=== PATIENT | male | born 1965 | race Caucasian/White ===

== ENCOUNTER 2019-02-04 08:02 | Emergency (ER) | payer OTHER ==
[2019-02-04 08:07] VITALS: RESP 16; TEMP 97.8
--- NOTE | 2019-02-04 08:39 | ED ---
Upper Extremity HPI - General Chief Complaint: Extremity Injury, Upper Stated Complaint: Shoulder injury-[facility] Time Seen by Provider: 02/04/19 08:07 Source: patient Mode of arrival: ambulatory Limitations: no limitations - History of Present Illness Initial Comments: Patient is a 53-year-old male complaining of left shoulder pain since this morning. States he went to lift 100 pound tool chest at work from the counter to the floor and felt instant pain and a pop in his left shoulder. No previous history of injury in the left shoulder. Denies numbness and tingling. No other complaints. - Related Data Home Medications Medication Instructions Recorded Confirmed No Known Home Medications 02/04/19 02/04/19 Allergies Allergy/AdvReac Type Severity Reaction Status Date / Time amoxicillin [Amoxicillin] Allergy Rash/Hives Verified 02/04/19 08:43 Review of Systems ROS Statement: Those systems with pertinent positive or pertinent negative responses have been documented in the HPI. ROS Other: All systems not noted in ROS Statement are negative. Past Medical History Past Medical History: No Reported History History of Any Multi-Drug Resistant Organisms: None Reported Past Surgical History: Back Surgery, Orthopedic Surgery Past Psychological History: No Psychological Hx Reported Smoking Status: Never smoker Past Alcohol Use History: Occasional Past Drug Use History: None Reported General Exam - General Exam Comments Initial Comments: GENERAL: Well-appearing, well-nourished and in no acute distress. HEAD: Atraumatic, normocephalic. EYES: Pupils equal round and reactive to light, extraocular movements intact, sclera anicteric, conjunctiva are normal. ENT: TMs normal, nares patent, oropharynx clear without exudates. Moist mucous membranes. NECK: Normal range of motion, supple without lymphadenopathy or JVD. LUNGS: Breath sounds clear to auscultation bilaterally and equal. No wheezes rales or rhonchi. HEART: Regular rate and rhythm without murmurs, rubs or gallops. ABDOMEN: Soft, nontender, normoactive bowel sounds. No guarding, no rebound. No masses appreciated. : Deferred EXTREMITIES: Decreased range of motion of the left shoulder,~70 flexion, 80 abduction. Painful arch. no pitting or edema. No clubbing or cyanosis. NEUROLOGICAL: Cranial nerves II through XII grossly intact. Normal speech, normal gait. PSYCH: Normal mood, normal affect. SKIN: Warm, Dry, normal turgor, no rashes or lesions noted. Limitations: no limitations Course Vital Signs 02/04/19 08:04 Temperature 97.8 F Pulse Rate 76 Respiratory 16 Rate Blood Pressure 125/86 O2 Sat by Pulse 97 Oximetry Medical Decision Making - Medical Decision Making Patient is a 53-year-old male complaining of left shoulder pain after lifting 100 pound tool chest at work today. Exam revealed possible rotator cuff injury. Left shoulder x-ray reveals increased distance between the inferior acromion and humeral head. Patient discharged home with sling and follow up with Dr. Uribe. Disposition Clinical Impression: Shoulder pain, left, Sprain of left shoulder joint Disposition: HOME SELF-CARE Condition: Stable Instructions (If sedation given, give patient instructions): Shoulder Pain (ED) Additional Instructions: Please return to the Emergency Department if symptoms worsen or any other concerns. Wear sling for comfort. Avoid lifting. Follow-up with ortho in 1 to 3 days. Is patient prescribed a controlled substance at d/c from ED?: No Referrals: Fidel Curtis DO [Primary Care Provider] - 1-2 days Ye Arellano MD [STAFF PHYSICIAN] - 1-2 days
--- NOTE | 2019-02-04 08:40 | XR ---
EXAMINATION TYPE: XR shoulder complete LT DATE OF EXAM: 02/04/2019 CLINICAL HISTORY: 3 views of left shoulder are obtained TECHNIQUE: Three views of the left shoulder are obtained. COMPARISON: None. FINDINGS: There is no acute fracture/dislocation evident in the left shoulder. The acromioclavicula r joint demonstrates mild arthropathy with small marginal osteophytes and subchondral cysts of the di stal clavicle. On the frontal view there is decreased distance between the inferior acromion and supe rior humeral head indicative of underlying rotator cuff injury. The visualized ribs are intact and u nremarkable. IMPRESSION: There is no acute fracture or dislocation in the left shoulder. On the AP view there is decreased distance between the acromion and supraspinatus suggesting rotator cuff injury. MRI could e valuate the rotator cuff.
[2019-02-04 09:15] VITALS: BP 134/85; PULSE 81
== END 2019-02-04 09:10 | disposition home or self-care (01) ==
LOC: EC 08:02
DX: S43.402A Unspecified sprain of left shoulder joint, initial encounter (principal); Z88.0 Allergy status to penicillin; X50.0XXA Overexertion from strenuous movement or load, initial encounter; Y92.69 Other specified industrial and construction area as the place of occurrence of the external cause; Y99.0 Civilian activity done for income or pay
CPT/HCPCS: 73030; 99283; L1830

== ENCOUNTER → 2019-02-09 | Outpatient (CLI) | payer OTHER ==
--- NOTE | 2019-02-09 07:46 | MR ---
EXAMINATION TYPE: MR shoulder LT wo con DATE OF EXAM: 02/09/2019 7:34 AM COMPARISON: NONE HISTORY: Pain in left shoulder, lifting injury TECHNIQUE: Multiplanar, multisequence imaging of the left shoulder is performed without contrast. FINDINGS: There is no evidence of an os acromiale. There are moderate inflammatory hypertrophic fritz es in the right AC joint. There is a mildly downward sloping acromion. There is a complete tear of the supraspinatus tendon with tendinous retraction to the level of the mi d body of the humerus. There is also an incomplete full-thickness tear of the infraspinatus tendon. T he subscapularis tendon shows evidence of tendinosis. The cartilaginous glenoid labrum is unremarkable. The biceps tendon is severely attenuated within the biceps tendon sheath. I cannot follow its intra-a rticular: Coarse I cannot visualize see insertion upon the biceps anchor. There is a moderate joint effusion. IMPRESSION: 1. COMPLETE TEAR OF THE SUPRASPINATUS TENDON WITH MUSCULAR RETRACTION BACK TO THE LEVEL OF THE MID HU MERAL HEAD. 2. INCOMPLETE FULL-THICKNESS TEAR OF THE INFRASPINATUS TENDON. 3. TENDINOSIS OF THE SUBSCAPULARIS TENDON. 4. I CANNOT FOLLOW THE BICEPS TENDON INTRA-ARTICULAR COURSE AND I SUSPECT IT MAY BE RUPTURED. 5. LARGE JOINT EFFUSION.
== END | disposition home or self-care (01) ==
LOC: RADMRIMAIN 07:02
PROVIDERS: ATTEND Orthopaedic Surgery
DX: M75.122 Complete rotator cuff tear or rupture of left shoulder, not specified as traumatic (principal); M75.112 Incomplete rotator cuff tear or rupture of left shoulder, not specified as traumatic; M67.814 Other specified disorders of tendon, left shoulder

== ENCOUNTER → 2019-02-20 | Outpatient (CLI) | payer OTHER ==
[2019-02-20 08:35] LABS: Basophils % (A) 1 %; Eosinophils # (A) 0.2 k/uL (0-0.7); Eosinophils % (A) 3 %; HCT 46.8 % (39.0-53.0); HGB 14.9 gm/dL (13.0-17.5); Lymphocytes # (A) 1.7 k/uL (1.0-4.8); Lymphocytes % (A) 24 %; MCH 30.5 pg (25.0-35.0); MCHC 31.8 g/dL (31.0-37.0); Mean Platelet Volume 6.7; Monocytes # (A) 0.3 k/uL (0-1.0); Monocytes % (A) 5 %; Neutrophils # (A) 4.7 k/uL (1.3-7.7); Neutrophils % (A) 65 %; Platelet Count 344 k/uL (150-450); RBC 4.87 m/uL (4.30-5.90); RDW 14.5 % (11.5-15.5); WBC 7.2 k/uL (3.8-10.6)
[2019-02-20 16:44] LABS: Anion Gap 8.2 mmol/L (4.00-12.00); Carbon Dioxide 25.8 mmol/L (21.6-31.8); Potassium 4.7 mmol/L (3.5-5.5)
== END | disposition home or self-care (01) ==
LOC: LABWHC1 07:52
PROVIDERS: ATTEND Orthopaedic Surgery
DX: Z01.818 Encounter for other preprocedural examination (principal); M75.42 Impingement syndrome of left shoulder
CPT/HCPCS: 36415; 80051; 85025; 93005

== ENCOUNTER 2019-02-27 11:22 | Day surgery (SDC) | payer OTHER ==
[2019-02-21 14:05] VITALS: BMI 24.5
--- NOTE | 2019-02-27 08:26 | HP ---
HISTORY AND PHYSICAL CHIEF COMPLAINT: Left shoulder pain. 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 He was lifting up a bin when he felt a tear and pain in his left shoulder. He has had problems ever since. He has a difficult time with any overhead activity and at night. He denies previous problems. PAST MEDICAL HISTORY: Significant for asthma. PAST SURGICAL HISTORY: Significant for right knee arthroscopy, lumbar spine surgery, in addition to right rotator cuff repair. CURRENT MEDICATIONS: None. ALLERGIES: He has allergies to CERTAIN TYPES OF ANTIBIOTICS. FAMILY HISTORY: Significant for cancer. SOCIAL HISTORY: Negative for current tobacco or alcohol use. REVIEW OF SYSTEMS: Sixteen-point review of systems otherwise reviewed and is noncontributory. PHYSICAL EXAMINATION: On examination, the patient is approximately 5 feet 11 inches, 178 pounds of mesomorphic habitus. HEENT exam is nonfocal. Neck is supple. On examination of the left shoulder, he is tender about the anterior subacromial space. He has moderate subacromial crepitus. Active range of motion forward elevation 155 degrees, external rotation with arm at side 35 degrees, internal rotation to T12. Motor strength is 5 minus over 5 for external rotation with arm at the side, 4+ or 5 for abduction. Impingement test, Neer test, and Speed test are positive. His distal neurovascular exam otherwise appears intact in the left upper extremity. MRI report left shoulder was reviewed and showed a full-thickness tear of the supraspinatus with some retraction. There is also partial tear of the infraspinatus along with a proximal biceps rupture. IMPRESSION: Left shoulder acute rotator cuff tear/proximal biceps rupture. RECOMMENDATION: I talked to the patient at length regarding his condition and treatment options. At this point, he is quite symptomatic after this acute injury and opts to proceed with surgery. We will plan to proceed with arthroscopic evaluation with probable subacromial decompression, rotator cuff repair, and biceps debridement. We will likely perform that as an outpatient procedure. Risks and benefits were discussed at length in layman's terms. MMODL / IJN: [id number] /
[~2019-02-27 11:22] MED LIST: LACTATED RINGERS 1,000 ML IV SCH; LIDOCAINE 1% 20 ML VIAL (10MG/ML) FOR IV START INTRADERMA PRN; ONDANSETRON 4 MG/2 ML VIAL IVP ONE; ceFAZolin IN SWFI 2 GM/20 ML SYRINGE IVP ONE
[2019-02-27] MEDS ORDERED: SCOPOLAMINE 1.5MG/72HR PATCH TRANSDERM ONE (12:19)
[2019-02-27] MEDS ORDERED: DEXAMETHASONE SOD PHOS (MDV) 100 MG/10 ML VIAL IV ONE (12:19)
[2019-02-27] MEDS ORDERED: MIDAZOLAM (PF) 2 MG/2 ML VIAL IV ONE (12:45)
--- NOTE | 2019-02-27 12:56 | P.ANPRN ---
Procedure Note - Anesthesia - Nerve Block Performed Left Interscalene Single Time Out Performed: Yes Date of Procedure: 02/27/19 Procedure Start Time: 12:45 Procedure Stop Time: 12:51 Location of Patient Procedure: PreOp Indication: Acute Post-Operative Pain, Requested by physician Sedation Type: Sedate with meaningful contact maintained Preparation: Sterile Prep, Sterile Dressing Position: Sitting Catheter: None Needle Types: Pajunk Needle Gauge: 21 Technique: Ultrasound Injectate: 0.5% Ropivacaine (see comment for volume) (30 ml) Blood Aspirated: No Pain Paresthesia on Injection Noted: No Resistance on Injection: Normal Events: Uneventful and Well Tolerated
[2019-02-27] MEDS ORDERED: LIDOCAINE 1% INJ 10MG/ML (20 ML MDV) ONE (13:08)
[2019-02-27] MEDS ORDERED: SUCCINYLCHOLINE CHLORIDE 100 MG/5 ML SYR IV ONE (13:08)
[2019-02-27] MEDS ORDERED: ROPIVACAINE 5 MG/ML 30 ML VIAL ONE (13:08)
[2019-02-27] MEDS ORDERED: PROPOFOL 10 MG/ML 20 ML VIAL IV ONE (13:08)
[2019-02-27] MEDS ORDERED: MIDAZOLAM 2 MG/2 ML VIAL ONE (13:08)
[2019-02-27] MEDS ORDERED: DEXAMETHASONE SOD PHOSPHATE 4 MG/ML 1 ML VIAL ONE (13:08)
[2019-02-27] MEDS ORDERED: fentaNYL (PF) 50 MCG/ML 2 ML AMP ONE (13:08)
[2019-02-27] MEDS ORDERED: EPINEPHrine 4 MG in SODIUM CHLORIDE 0.9% IRRIGATIO 3,000 ML IRRIGATION ONE (14:19)
[2019-02-27] MEDS ORDERED: LACTATED RINGERS 1,000 ML IV ONE (14:38)
[2019-02-27 15:11] VITALS: TEMP 97
--- NOTE | 2019-02-27 15:13 | P.OP ---
Date of Procedure: 02/27/19 Preoperative Diagnosis: Acute left rotator cuff tear Postoperative Diagnosis: 4 cm retracted left rotator cuff tear/rupture proximal biceps Procedure(s) Performed: Left shoulder arthroscopic subacromial decompression/rotator cuff repair/biceps debridement Implants: Arthrex 4.75 mm swivel lock anchor 4 Anesthesia: sanket LAZO Surgeon: Ye Arellano Document Preparer Microfilming #1: Vega Mckeon Estimated Blood Loss (ml): 10 Pathology: none sent Condition: stable Disposition: PACU Indications for Procedure: The patient's a 54-year-old male who presents with persistent left shoulder pain and stiffness after previous work injury. A discussion the risks and benefits of operative intervention was made with the patient versus continued conservative measures. He opted to proceed with surgery. Operative risks to include infection, neurovascular injury, development of blood clots, possible tendon rerupture, possible postoperative stiffness, and possible need for subsequent procedures was discussed. Informed consent was obtained. Operative Findings: As below Description of Procedure: The patient was brought to the operating room, and after induction of general anesthesia was placed in a beachchair position. A preoperative interscalene block was placed for postoperative analgesia. I examined the left shoulder. There was no gross block to passive motion or gross glenohumeral instability. The left upper extremity was prepped and draped in normal fashion. The bony outlines the acromion, distal clavicle, and coracoid process were outlined with a skin marker. The glenohumeral joint was inflated with 50 mL of saline utilizing a spinal needle from posterior approach. A posterior portal was made through a 5 mm skin incision 1 cm medial and inferior to the posterior lateral border time. A blunt trocar was used to easily into the joint. Diagnostic arthroscopy was performed. An anterior portal was made just lateral to the coracoid process entering the joint above the subscapularis tendon. The subscapularis tendon appeared to be intact. Anterior labrum was intact. The inferior recess was inspected. The posterior labrum was intact. There was a previous complete tear of the long head of the biceps involving interarticular portion. The remaining stump was debrided back to stable base with a motorized shaver. Grade 2 chondral changes were noted diffusely in the glenohumeral joint. On inspection the rotator cuff he retracted 4 cm tear was noted involving the supraspinatus and interspace tendons. The posterior portion of the cuff appeared to be intact. The arthroscope was placed into the subacromial space. A lateral portal was made 2 centimeters inferior to the anterior lateral border of the acromion. The rotator cuff was then mobilized with a traction suture. I was able to bring this back to the greater tuberosity. The soft tissue on the undersurface of the acromion was debrided with a motorized shaver and electrocautery clearly defining the anterior medial and lateral borders as well as the distal clavicle. An anterior inferior acromioplasty was performed with a motorized escobar starting anterolateral, then extending this posteriorly, then extending this medially. I converted to a flat acromion and this was verified in the posterior and lateral viewing portals. The greater tuberosity was lightly decorticating with a shaver down to a bleeding bony surface. An accessory superior lateral portal was made just off the lateral edge of the acromion for anchor placement. 2 anchors were then placed just off the articular surface with the appropriate starting awl. 4.75 mm anchors preloaded with #2 fiber tape were placed. Good purchase was obtained. These fiber tapes were then passed the rotator cuff with a scorpion suture passer. A lateral row was created crisscrossing these tapes. 4.75 mm swivel lock anchors were placed laterally. Good purchase was obtained. Final arthroscopic view showed adequate compression at the footprint. It was noted at this point, the camera system had not been functioning therefore final pictures were then obtained. The arthroscope was then removed. The portals were closed with simple 3-0 nylon sutures. A sterile dressing was applied in addition to an abductor brace. The patient was then awoken from general anesthesia and transferred to recovery room in good condition. Blood loss was estimated at 10 mL. No complications were incurred. Sponge and needle counts were correct in the case. Surjit MILES assisted and the major components of the case to include arm positioning, anchor placement, and rotator cuff repair.
[2019-02-27] MEDS: HYDROmorphone 0.5 MG/0.5 ML SYRINGE IVP PRN ×2 (15:16→15:33)
[2019-02-27] MEDS ORDERED: HYDROcodone/APAP 10-325MG 1 EACH TAB PO ONE (16:27)
[2019-02-27 17:36] VITALS: BP 129/85; PULSE 90; RESP 16
== END 2019-02-27 17:23 | disposition home or self-care (01) ==
LOC: OR 11:22
PROVIDERS: ATTEND Orthopaedic Surgery
DX: S46.012A Strain of muscle(s) and tendon(s) of the rotator cuff of left shoulder, initial encounter (principal); S46.112A Strain of muscle, fascia and tendon of long head of biceps, left arm, initial encounter; X50.9XXA Other and unspecified overexertion or strenuous movements or postures, initial encounter; Y99.0 Civilian activity done for income or pay; J45.909 Unspecified asthma, uncomplicated; Z79.899 Other long term (current) drug therapy; Z98.890 Other specified postprocedural states; Z80.9 Family history of malignant neoplasm, unspecified; Z88.0 Allergy status to penicillin
CPT/HCPCS: 64415; 29827; 29826; C1713; C1894; J0171; J2250 ×2; J1100 ×2; J2405; J2001; J3010; J2795; J0330; J2704; J1170; J0690

== ENCOUNTER 2020-07-20 09:45 | Emergency (ER) | payer BC, OTHER ==
[2020-07-20 09:50] VITALS: BP 160/96; PULSE 92; RESP 18; TEMP 97.6
[2020-07-20] MEDS ORDERED: ceFAZolin 1,000 MG VIAL (IM USE) IM STA (10:09)
[2020-07-20] MEDS ORDERED: DIPH,PERTUS(ACELL)TETVAC-LF 0.5 ML VIAL IM ONE (10:09)
[2020-07-20] MEDS ORDERED: HYDROcodone/APAP 7.5-325MG 1 EACH TAB PO ONE (10:10)
[2020-07-20] MEDS ORDERED: LIDOCAINE 1% INJ 10MG/ML (20 ML MDV) SQ ONE (10:11)
--- NOTE | 2020-07-20 11:07 | ED ---
Wound/Laceration HPI - General Chief Complaint: Wound/Laceration Stated Complaint: [facility]- R Finger Injury Time Seen by Provider: 07/20/20 09:52 Source: patient Mode of arrival: wheelchair Limitations: no limitations - History of Present Illness Initial Comments: 55-year-old male presenting for right index finger laceration. Patient states he pressed his finger into machine. He states it misfired. Patient states he sustained injury to his distal right index finger. Patient states he is unable to straighten the distal part of his finger. Patient states he feels weak and he just cannot to them motion. Patient states is still able to sense the distal portion of the digit. He states the bleeding is controlled. He denies any other areas of injury. He is unsure of his last tetanus. Patient denies diabetes he has no additional complaints upon arrival he appears well and nontoxic - Related Data Previous Rx's Medication Instructions Recorded Cephalexin [Keflex] 500 mg PO Q6HR 7 Days #28 cap 07/20/20 Cephalexin [Keflex] 500 mg PO Q8HR 7 Days #28 cap 07/20/20 HYDROcodone/APAP 5-325MG [[place] 1 tab PO Q6HR PRN 3 Days #12 tab 07/20/20 5-325] Allergies Allergy/AdvReac Type Severity Reaction Status Date / Time amoxicillin [Amoxicillin] Allergy Rash/Hives Verified 07/20/20 09:50 Review of Systems ROS Statement: Those systems with pertinent positive or pertinent negative responses have been documented in the HPI. ROS Other: All systems not noted in ROS Statement are negative. Past Medical History Past Medical History: No Reported History Additional Past Medical History / Comment(s): recent lt shoulder injury History of Any Multi-Drug Resistant Organisms: None Reported Past Surgical History: Back Surgery, Orthopedic Surgery Additional Past Surgical History / Comment(s): rt knee scope, rt shoulder scope. back surgery with 4 screws, 1 evan, plates Past Anesthesia/Blood Transfusion Reactions: Previous Problems w/ Anesthesia, Motion Sickness, Postoperative Nausea & Vomiting (PONV) Past Psychological History: No Psychological Hx Reported Smoking Status: Never smoker Past Alcohol Use History: None Reported, Occasional Past Drug Use History: None Reported - Past Family History Father Family Medical History: Cancer Additional Family Medical History / Comment(s): stomach cancer Mother Family Medical History: Cancer Additional Family Medical History / Comment(s): breast cancer x2, lung cancer General Exam - General Exam Comments Initial Comments: General: The patient is awake and alert, in no distress, and does not appear acutely ill. Eye: Pupils are equal, round and reactive to light, extra-ocular movements are intact. No nystagmus. There is normal conjunctiva bilaterally. No signs of icterus. Cardiovascular: There is a regular rate and rhythm. No murmur, rub or gallop is appreciated. Respiratory: Lungs are clear to auscultation, respirations are non-labored, breath sounds are equal. No wheezes, stridor, rales, or rhonchi. Musculoskeletal: Laceration deformity at the DIP mostly extensor surface but does wrap around to the flexor aspect, finger in a forced flex position distal to the DIP joitn. patient able to fex and extend at the MCP, and PIP joints. Sensation intact of the distal tip, capillary refill present but sluggish ~4 seconds. Radial pulses equal bilaterally 2+. Neurological: A&O x 3. CN II-XII intact, There are no obvious motor or sensory deficits. Coordination appears grossly intact. Speech is normal. Skin: Skin is warm and dry and no rashes or lesions are noted. Psychiatric: Cooperative, appropriate mood & affect, normal judgment. Limitations: no limitations Course Vital Signs 07/20/20 09:48 Temperature 97.6 F Pulse Rate 92 Respiratory 18 Rate Blood Pressure 160/96 O2 Sat by Pulse 98 Oximetry - Reevaluation(s) Reevaluation #1: Martha HUMPHRIES covering for Dr. Roe (Maxim) consulted, she states she will consult Armando Roe for further hand recommendations. Awaiting lilibeth back 07/20/20 11:07 Procedures - Laceration Laceration #1 Consent Obtained: verbal consent Indication: laceration Site: other (index finger) Size (cm): 3 Description: irregular, clean Depth: simple, single layer, involves tendon Anesthetic Used: lidocaine 1% Anesthesia Technique: local infiltration, nerve block Amount (mls): 3 Pre-repair: wound explored, irrigated extensively, deep structures intact Type of Sutures: nylon Size of Sutures: 5-0 Number of Sutures: 15 Technique: simple, interrupted Patient Tolerated Procedure: well, no complications Medical Decision Making - Medical Decision Making 55-year-old male presenting today for chief complaint of right index finger laceration. Patient [id number]. There is obvious tendon injury is patient's third distal to the DIP joint is in a force flexed positioning. Patient does have suspected fracture near the DIP joint as well as tendon injury suspected on x-ray. No evidence of foreign body on exam I cannot visualize the tendon. Patient is able to flex/extend full at the PIP and MCP. Some increased flexion allowed. cannto extend. consulted Orthopedic unit controller. Final recommendations. Area was extensively irrigated with 1 L. Patient was given Ancef tetanus updated. Wound repaired. and splinted in extended position. Patient educated on importance of f/u on Monday and return to ER for signs of infection discharged on keflex appearing well.Dr. Stafford agreeable to care plan. Disposition Clinical Impression: Partial traumatic amputation of finger through phalanx, Injury of extensor tendon of right hand Disposition: HOME SELF-CARE Condition: Good Instructions (If sedation given, give patient instructions): Care For Your Stitches (ED), Laceration (ED), Tendon Laceration (ED) Additional Instructions: Please use medication as discussed. Please follow-up with Dr. Armando Roe on Monday in clinic call today after leaving ER to set up appointment time.Keep splint in place and take antibiotics as directed. Please return to emergency room if the symptoms increase or worsen or for any other concerns. Prescriptions: Cephalexin [Keflex] 500 mg PO Q6HR 7 Days #28 cap Cephalexin [Keflex] 500 mg PO Q8HR 7 Days #28 cap HYDROcodone/APAP 5-325MG [[place] 5-325] 1 tab PO Q6HR PRN 3 Days #12 tab PRN Reason: Pain Is patient prescribed a controlled substance at d/c from ED?: No Referrals: Fidel Curtis DO [Primary Care Provider] - 1-2 days Fortunato Kemp DO [Doctor of Osteopathic Medicine] - 1-2 days Time of Disposition: 11:58
--- NOTE | 2020-07-20 11:16 | XR ---
EXAMINATION TYPE: XR finger RT DATE OF EXAM: 07/20/2020 CLINICAL HISTORY: pain Second digit. TECHNIQUE: 3 views of the second digit are submitted. COMPARISON: None FINDINGS: There is evidence of soft tissue laceration and bony fragmentation adjacent to the dorsal h ead of the middle phalanx right second digit. The DIP joint is fixed in flexion. IMPRESSION: As above
[2020-07-20] MEDS ORDERED: BACITRACIN OINT 1 EACH PACKET TOPICAL ONE (11:53)
== END 2020-07-20 12:15 | disposition home or self-care (01) ==
LOC: EC 09:45
DX: S68.620A Partial traumatic transphalangeal amputation of right index finger, initial encounter (principal); Z23 Encounter for immunization; Z88.0 Allergy status to penicillin; W31.9XXA Contact with unspecified machinery, initial encounter; Y92.69 Other specified industrial and construction area as the place of occurrence of the external cause; Y99.0 Civilian activity done for income or pay
CPT/HCPCS: 73140; 90715; 99283; 90471; 96372; 12002; J0690; J2001

== ENCOUNTER 2020-08-07 09:01 | Day surgery (SDC) | payer BC ==
[2020-08-04 09:51] VITALS: BMI 24.3
[~2020-08-07 09:01] MED LIST changes: +LIDOCAINE 1% (10MG/ML) FOR IV START INTRADERMA PRN; -LIDOCAINE 1% 20 ML VIAL (10MG/ML) FOR IV START INTRADERMA PRN; -ONDANSETRON 4 MG/2 ML VIAL IVP ONE; -ceFAZolin IN SWFI 2 GM/20 ML SYRINGE IVP ONE
[2020-08-07 09:26] VITALS: TEMP 97.3
[2020-08-07] MEDS ORDERED: ONDANSETRON 4 MG/2 ML VIAL ONE (09:48)
[2020-08-07] MEDS ORDERED: PROPOFOL 10 MG/ML 20 ML VIAL IV ONE (10:25)
--- NOTE | 2020-08-07 10:38 | P.GSHP ---
History of Present Illness H&P Date: 08/07/20 Chief Complaint: History of colon polyps This a 55-year-old male who presents today for colonoscopy. Patient has previous history of colon polyps. His last colonoscopy was over 3 years ago. Past Medical History Past Medical History: No Reported History Additional Past Medical History / Comment(s): recent lt shoulder injury History of Any Multi-Drug Resistant Organisms: None Reported Past Surgical History: Back Surgery, Orthopedic Surgery Additional Past Surgical History / Comment(s): rt knee arthroscopic , rt shoulder arthroscopic. back surgery with 4 screws, 1 evan, plates, left shoulder surgery, right index finger Past Anesthesia/Blood Transfusion Reactions: Previous Problems w/ Anesthesia, Motion Sickness, Postoperative Nausea & Vomiting (PONV) Smoking Status: Former smoker - Past Family History Father Family Medical History: Cancer Additional Family Medical History / Comment(s): stomach cancer Mother Family Medical History: Cancer Additional Family Medical History / Comment(s): breast cancer x2, lung cancer Medications and Allergies Home Medications Medication Instructions Recorded Confirmed Type No Known Home Medications 08/04/20 08/07/20 History Allergies Allergy/AdvReac Type Severity Reaction Status Date / Time amoxicillin [Amoxicillin] Allergy Rash/Hives Verified 08/07/20 09:20 Surgical - Exam Vital Signs Temp Pulse Resp BP Pulse Ox 97.3 F L 86 16 133/77 97 08/07/20 09:24 08/07/20 09:24 08/07/20 09:24 08/07/20 09:24 08/07/20 09:24 - General well developed, well nourished, no distress - Eyes PERRL - ENT normal pinna - Neck no masses - Respiratory normal expansion - Cardiovascular Rhythm: regular - Abdomen Abdomen: soft, non tender Assessment and Plan Assessment: History of colon polyps. We'll perform colonoscopy.
--- NOTE | 2020-08-07 10:55 | P.OP ---
Date of Procedure: 08/07/20 Preoperative Diagnosis: History of colon polyps Screening colonoscopy Postoperative Diagnosis: Left colon polyp Diverticulosis Procedure(s) Performed: Colonoscopy Anesthesia: MAC Surgeon: Shaquille Romero Pathology: other (Left colon polyp) Condition: stable Disposition: PACU Description of Procedure: The patient's placed on the endoscopy table in the lateral position. He received IV sedation. Digital rectal exam was performed which revealed no abnormalities. The colonoscope was then placed patient anus passed throughout the entire colon. The ileocecal valve was visualized. The cecum, ascending and transverse colon appeared normal. In the descending and and sigmoid colon there was mild dive rticulosis. In the left colon there was a small polyp seen this removed with the combination of snare and cold forcep. Scope was then brought back the rectum and this appeared normal. Scope was withdrawn for patient.
[2020-08-07 11:25] VITALS: BP 118/79; PULSE 65; RESP 16
--- NOTE | 2020-08-07 13:49 | P.OP ---
Date of Procedure: 08/07/20 Preoperative Diagnosis: History of colon polyps Postoperative Diagnosis: Diverticulosis External hemorrhoids Procedure(s) Performed: Colonoscopy Anesthesia: CLIFTON Surgeon: Shaquille Romero Pathology: none sent Condition: stable Disposition: PACU Description of Procedure: The patient's placed on the endoscopy table lateral position. He received IV sedation. Digital rectal exam was performed which revealed external hemorrhoids. Flexible colonoscope was then placed patient anus passed throughout the entire colon. The ileocecal valve was visually's. The cecum, ascending and transverse colon appeared normal. In the descending; was mild diverticular changes. The scope was brought back the rectum and this appeared normal. Scope withdrawn for patient.
== END 2020-08-07 11:53 | disposition home or self-care (01) ==
LOC: ORWHC2ENDO 09:01
PROVIDERS: ATTEND Surgery
DX: Z12.11 Encounter for screening for malignant neoplasm of colon (principal); K63.5 Polyp of colon; K57.30 Diverticulosis of large intestine without perforation or abscess without bleeding; K64.4 Residual hemorrhoidal skin tags; Z86.010 Personal history of colon polyps; Z98.890 Other specified postprocedural states; Z87.891 Personal history of nicotine dependence; Z82.1 Family history of blindness and visual loss; Z80.0 Family history of malignant neoplasm of digestive organs; Z80.3 Family history of malignant neoplasm of breast; Z80.1 Family history of malignant neoplasm of trachea, bronchus and lung; Z88.0 Allergy status to penicillin
CPT/HCPCS: 88305; 45385; J2405; J2704; 45380

== ENCOUNTER → 2021-05-31 | Outpatient (CLI) | payer OTHER, BC ==
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
== END | disposition home or self-care (01) ==
LOC: RADCTMAIN 08:36
PROVIDERS: ATTEND Urology
DX: S37.20XA Unspecified injury of bladder, initial encounter (principal); X58.XXXA Exposure to other specified factors, initial encounter
CPT/HCPCS: 72192

== ENCOUNTER → 2021-11-09 | Outpatient (CLI) | payer OTHER, BC ==
--- NOTE | 2021-11-09 21:38 | CT ---
EXAMINATION TYPE: CT wrist RT wo con DATE OF EXAM: 11/09/2021 COMPARISON: None available HISTORY: pain CT DLP: 175.3 mGycm Automated exposure control for dose reduction was used. TECHNIQUE: Multiplanar CT scan of the right wrist without IV contrast administration. 3-D images were reconstructed on a separate workstation and reviewed. FINDINGS: Previous distal radial fixation using 2 plates and multiple screws causing severe beam hardening zenaida facts on the adjacent structures with suboptimal assessment. No evidence of prosthesis break or displ acement. Persistent nonhealing of the comminuted fracture involving the distal radial diaphysis, extending to the distal radial metaphysis, distal radioulnar articulation as well as the radiocarpal articulation with multiple bone fragments measuring up to 9 mm. Mild dorsal subluxation of the distal ul na in relation to the radius in the distal radioulnar articulation. The distal ulnar epiphysis demonstrates subchondral cyst formation, slight remodeling and mild deform ity. There is apparent deformity of the trapezium and trapezoid with marked degenerative changes of t he first and second carpometacarpal articulations. It is not possible to exclude subtle fracture of t he carpal bones due to artifacts. Subchondral cyst formation is also seen at the radial aspect of the distal radioulnar articulation. S oft tissue swelling surrounding the distal ulnar end, underlying acute inflammatory/infectious proces s at that location can't be excluded. No soft tissue gas. 4 mm bone fragment is seen along the latera l aspect of the radioscaphoid articulation. IMPRESSION: Distal radial comminuted fracture fixation causing significant artifact as described above. Persisten t nonhealing is seen at the fracture site. Surrounding degenerative and chronic changes as described above. Soft tissue swelling surrounding the distal ulnar epiphysis, underlying acute inflammatory/infectious process cannot be excluded. Please correlate clinically. Further bone scan/gallium scan or MRI asses sment can be considered if clinically required. It is not possible to exclude subtle fracture of the carpal or proximal metacarpal bones due to artif acts. Other findings as described above.
== END | disposition home or self-care (01) ==
LOC: RADCTMAIN 17:17
PROVIDERS: ATTEND Orthopaedic Surgery Orthopaedic Trauma
DX: M25.531 Pain in right wrist (principal)

== ENCOUNTER → 2022-04-13 | Outpatient (CLI) | payer BC, OTHER ==
[2022-04-13 14:35] LABS: Basophils # (A) 0.04 X 10*3/uL (0.00-0.10); Basophils % (A) 0.5 %; Eosinophils # (A) 0.27 X 10*3/uL (0.04-0.35); Eosinophils % (A) 3.2 %; HCT 42.1 % (39.6-50.0); HGB 14.1 g/dL (13.0-17.0); Immature Grans, Automated 0.1 %; Lymphocytes # (A) 2.23 X 10*3/uL (0.90-5.00); Lymphocytes % (A) 26.5 %; MCH 30.5 pg (27.0-32.0); MCHC 33.5 g/dL (32.0-37.0); MCV 91.1 fL (80.0-97.0); Mean Platelet Volume 9.5 fL (9.5-12.2); Monocytes # (A) 0.45 X 10*3/uL (0.20-1.00); Monocytes % (A) 5.3 %; NRBC Per 100 WBC 0 /100 WBCS (0.0-0.0); Neutrophils # (A) 5.42 X 10*3/uL (1.80-7.70); Neutrophils % (A) 64.4 %; Platelet Count 332 X 10*3/uL (140-440); RBC 4.62 X 10*6/uL (4.40-5.60); RDW 14.4 % (11.5-14.5); WBC 8.42 X 10*3/uL (4.50-10.00)
[2022-04-13 14:48] LABS: Anion Gap 11.1 mmol/L (10.00-18.00); Carbon Dioxide 22.9 mmol/L (20.0-27.5); Potassium 4.1 mmol/L (3.5-5.5)
== END | disposition home or self-care (01) ==
LOC: LABPAT 10:28
PROVIDERS: ATTEND Orthopaedic Surgery Hand Surgery
DX: Z01.812 Encounter for preprocedural laboratory examination (principal); Z01.818 Encounter for other preprocedural examination
CPT/HCPCS: 80051; 85025; 93005

== ENCOUNTER → 2023-10-16 | Outpatient (CLI) | payer BC ==
[2023-10-16 11:40] LABS: ALT 67 U/L (4-49); AST 39 U/L (17-59); African American GFR (CKD) >90 (>60 ml/min/1.73 sqM); Albumin 3.9 g/dL (3.5-5.0); Albumin/Globulin Ratio 1.1; Alkaline Phosphatase 151 U/L (38-126); Anion Gap 7 mmol/L; Blood Urea Nitrogen 20 mg/dL (9-20); Carbon Dioxide 22 mmol/L (22-30); Chloride 109 mmol/L (98-107); Globulin 3.5 g/dL; Glucose 82 mg/dL (74-99); Magnesium 1.9 mg/dL (1.6-2.3); Non-African American GFR(CKD) >90 (>60 ml/min/1.73 sqM); Potassium 4.8 mmol/L (3.5-5.1); Sodium 138 mmol/L (137-145); Total Bilirubin 0.9 mg/dL (0.2-1.3); Total Protein 7.4 g/dL (6.3-8.2)
[2023-10-16 11:47] LABS: NT-Pro-B-Type Natriuretic Pept 1990 pg/mL
[2023-10-16 16:16] LABS: Basophils # (A) 0.16 X 10*3/uL (0.00-0.10); Basophils % (A) 1.4 %; Eosinophils # (A) 0.85 X 10*3/uL (0.04-0.35); Eosinophils % (A) 7.5 %; HCT 36.4 % (39.6-50.0); HGB 11.4 g/dL (13.0-17.0); Lymphocytes # (A) 1.88 X 10*3/uL (0.90-5.00); Lymphocytes % (A) 16.5 %; MCH 30.4 pg (27.0-32.0); MCHC 31.3 g/dL (32.0-37.0); MCV 97.1 FL (80.0-97.0); Monocytes # (A) 0.74 X 10*3/uL (0.20-1.00); Monocytes % (A) 6.5 %; NRBC Per 100 WBC 0 X 10*3/uL (0.00-0.01); Neutrophils # (A) 7.69 X 10*3/uL (1.80-7.70); Neutrophils % (A) 67.7 %; Platelet Count 625 X 10*3/uL (140-440); RBC 3.75 X 10*6/uL (4.40-5.60); RDW 15.8 % (11.5-14.5); WBC 11.37 X 10*3/uL (4.50-10.00)
== END | disposition home or self-care (01) ==
LOC: LABWHC1 10:22
PROVIDERS: ATTEND Internal Medicine
DX: I50.21 Acute systolic (congestive) heart failure (principal); D75.839 Thrombocytosis, unspecified
CPT/HCPCS: 36415; 80053; 83735; 83880; 85025; 85246

== ENCOUNTER → 2023-10-31 | Outpatient (CLI) | payer BC ==
[2023-10-31 15:35] LABS: Basophils # (A) 0.09 X 10*3/uL (0.00-0.10); Basophils % (A) 0.9 %; Eosinophils # (A) 0.66 X 10*3/uL (0.04-0.35); Eosinophils % (A) 6.5 %; HCT 38.3 % (39.6-50.0); HGB 12.1 g/dL (13.0-17.0); Lymphocytes # (A) 1.55 X 10*3/uL (0.90-5.00); Lymphocytes % (A) 15.3 %; MCHC 31.6 g/dL (32.0-37.0); MCV 94.8 FL (80.0-97.0); Mean Platelet Volume 9.1 FL (9.5-12.2); Monocytes # (A) 0.62 X 10*3/uL (0.20-1.00); Monocytes % (A) 6.1 %; NRBC Per 100 WBC 0 X 10*3/uL (0.00-0.01); Neutrophils # (A) 7.17 X 10*3/uL (1.80-7.70); Neutrophils % (A) 70.9 %; Platelet Count 596 X 10*3/uL (140-440); RBC 4.04 X 10*6/uL (4.40-5.60); RDW 15.8 % (11.5-14.5); WBC 10.12 X 10*3/uL (4.50-10.00)
[2023-10-31 16:11] LABS: ALT 29 U/L (10-49); AST 25 U/L (14-35); Albumin 3.9 g/dL (3.8-4.9); Alkaline Phosphatase 105 U/L (41-126); Blood Urea Nitrogen 15.4 mg/dL (9.0-27.0); Calcium 9.7 mg/dL (8.7-10.3); Carbon Dioxide 22.1 mmol/L (21.6-31.8); Chloride 103 mmol/L (96-109); Glucose 76 mg/dL (70-110); Magnesium 1.8 mg/dL (1.5-2.4); Potassium 5.1 mmol/L (3.5-5.5); Prostate Specific Antigen 0.74 ng/mL (0.000-3.500); Sodium 138 mmol/L (135-145); Total Bilirubin 0.8 mg/dL (0.3-1.2); Total Protein 6.9 g/dL (6.2-8.2)
[2023-10-31 16:44] LABS: NT-Pro-B-Type Natriuretic Pept 2175 pg/mL (0-125)
== END | disposition home or self-care (01) ==
LOC: LABWHC1 10:45
PROVIDERS: ATTEND Family Medicine
DX: Z00.00 Encounter for general adult medical examination without abnormal findings (principal)
CPT/HCPCS: 36415; 80053; 83735; 83880; 84153; 85025; 85246

== ENCOUNTER 2023-11-18 20:41 | Emergency (ER) | payer BC ==
[2023-11-18 21:05] VITALS: RESP 18; TEMP 97.3
[2023-11-18 21:20] LABS: Basophils # (A) 0.1 k/uL (0-0.2); Basophils % (A) 1 %; Eosinophils # (A) 0.4 k/uL (0-0.7); Eosinophils % (A) 4 %; HCT 36.2 % (39.0-53.0); HGB 12.4 gm/dL (13.0-17.5); Lymphocytes # (A) 2.5 k/uL (1.0-4.8); Lymphocytes % (A) 22 %; MCH 31.5 pg (25.0-35.0); MCHC 34.2 g/dL (31.0-37.0); MCV 92.1 fL (80.0-100.0); Mean Platelet Volume 7.4; Monocytes # (A) 0.5 k/uL (0-1.0); Monocytes % (A) 4 %; Neutrophils # (A) 7.4 k/uL (1.3-7.7); Neutrophils % (A) 66 %; Platelet Count 367 k/uL (150-450); RBC 3.93 m/uL (4.30-5.90); RDW 15.6 % (11.5-15.5); WBC 11.2 k/uL (3.8-10.6)
[2023-11-18 21:24] LABS: ALT 22 U/L (4-49); AST 30 U/L (17-59); African American GFR (CKD) 69 (>60 ml/min/1.73 sqM); Albumin 3.9 g/dL (3.5-5.0); Alkaline Phosphatase 108 U/L (38-126); Anion Gap 12 mmol/L; Blood Urea Nitrogen 21 mg/dL (9-20); Calcium 8.5 mg/dL (8.4-10.2); Carbon Dioxide 21 mmol/L (22-30); Chloride 106 mmol/L (98-107); Creatine Kinase 102 U/L (55-170); Glucose 94 mg/dL (74-99); Lipase 223 U/L (23-300); Magnesium 1.7 mg/dL (1.6-2.3); Non-African American GFR(CKD) 59 (>60 ml/min/1.73 sqM); Potassium 3.4 mmol/L (3.5-5.1); Sodium 139 mmol/L (137-145); Total Bilirubin 0.6 mg/dL (0.2-1.3)
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
--- NOTE | 2023-11-18 21:48 | XR ---
EXAMINATION TYPE: XR chest 2V DATE OF EXAM: 11/18/2023 9:27 PM CLINICAL INDICATION:Male, 58 years old with history of Syncope; COMPARISON: Chest radiographs from 07/12/2011 TECHNIQUE: XR chest 2V Frontal and lateral views of the chest. FINDINGS: Lungs/Pleura: Increased interstitial markings compared to prior. There is flattening of the diaphragm with increased lucency of the lungs. No evidence of pneumothorax, pleural effusion or focal consolid ation. Pulmonary vascularity: Unremarkable. Heart/mediastinum: Cardiomediastinal silhouette is unremarkable. Musculoskeletal: No acute osseous pathology. IMPRESSION: 1. Increased interstitial markings correlate for atypical pneumonia versus pulmonary vascular congest ion. 2. COPD changes.
[2023-11-18 21:49] LABS: Digoxin <0.4 ng/mL
[2023-11-18 21:55] LABS: NT-Pro-B-Type Natriuretic Pept 1980 pg/mL
[2023-11-18 22:11] LABS: Appearance,Urine Clear (Clear); Bilirubin,Urine Negative (Negative); Blood,Urine Negative (Negative); Color,Urine Colorless; Glucose,Urine (UA) 3+ (Negative); Ketones,Urine Negative (Negative); Leukocyte Esterase,Urine Negative (Negative); Nitrite,Urine Negative (Negative); Protein,Urine Negative (Negative); Specific Gravity,Urine 1.008 (1.001-1.035); Urobilinogen,Urine <2.0 mg/dL (<2.0)
[2023-11-18 22:49] VITALS: BP 106/65; PULSE 86
[2023-11-18] MEDS: POTASSIUM CHLORIDE ER 20 MEQ TAB.ER PO STA (23:04)
== END 2023-11-18 23:09 | disposition home or self-care (01) ==
LOC: EC 20:41
DX: I95.1 Orthostatic hypotension (principal); E86.0 Dehydration; E87.6 Hypokalemia; Z88.0 Allergy status to penicillin
CPT/HCPCS: 36415; 71046; 80053; 80162; 81003; 82550; 83690; 83735; 83880; 84484; 85025; 93005; 99285